=== PATIENT | male | born 2000 | race Caucasian/White ===

== ENCOUNTER 2019-01-30 12:51 | Emergency (ER) | payer MEDICAID ==
[~2019-01-30] VITALS: Ht 177.8 cm; Wt 86.4 kg
[~2019-01-30 12:51] MED LIST: MONT10TA21 PO
[2019-01-30 12:57] VITALS: BP 139/81
[2019-01-30] MEDS ORDERED: meclizine 12.5mg tablet PO ONE (13:40)
== END 2019-01-30 13:52 | disposition home or self-care (01) ==
LOC: ER 12:52
DX: R42 Dizziness and giddiness (principal); R11.0 Nausea
CPT/HCPCS: 82948; 99282; J8597